=== PATIENT | male | born 1955 | race African-American/Black ===

== ENCOUNTER 2021-03-04 04:35 | Day surgery (SDC) | payer OTHER ==
[2021-03-03 11:34] VITALS: BMI 21.2
[2021-03-04 13:28] VITALS: TEMP 97.1
[2021-03-04 14:17] VITALS: BP 119/68; PULSE 59
== END 2021-03-04 14:10 | disposition home or self-care (01) ==
LOC: JASU-ENDO 04:35
PROVIDERS: ATTEND Internal Medicine Gastroenterology
PROC: 0DJD8ZZ Inspection of Lower Intestinal Tract, Via Natural or Artificial Opening Endoscopic (ICD-10-PCS; principal; 2021-03-04 13:03)
DX: Z12.11 Encounter for screening for malignant neoplasm of colon (principal)